=== PATIENT | male | born 1950 | race Caucasian/White ===

== ENCOUNTER 2017-05-03 05:58 | Inpatient (IN) | payer MEDICARE ==
[2017-05-03] VITALS (11 sets, daily range): BP systolic 94–122; BP diastolic 52–71; PULSE 77–87; RESP 14–20; O2SAT 93–99
[~2017-05-03] VITALS: Ht 177.8 cm; Wt 100.0 kg
[~2017-05-03 05:58] MED LIST: ASCO500C6 PO; CHOL10008 PO; CLIN-78 PO; DIAZ5TAB PO; DUTA0.5C2 PO; FLUT9.9S NS; GLBR5T PO; LEVO50CA2 PO; LOVA20TA PO; LTRS15C EXT; Lactated Ringer's 1,000 ML IV SCH; MELO-253 PO; METF-496 PO; MULT-1018 PO; MUPI15CR TOPICAL; NAPR220C16 PO; RIFA300C4 PO; TAMS0.4C98 PO
[2017-05-03] MEDS ORDERED: Acetaminophen IV 1,000 mg IV ONE (06:00)
[2017-05-03] MEDS ORDERED: Hip/Knee Infiltration Cocktail INFILTRATE ONE ×7 (06:00)
[2017-05-03] MEDS ORDERED: Bupivacaine Liposome 1.3% 20 mL Inj INFILTRATE ONE (06:00)
[2017-05-03] MEDS ORDERED: Gentamicin 40 mg/mL 2 mL Inj INJ ONE (06:00)
[2017-05-03] MEDS ORDERED: CeFAZolin 2 Gm/50 mL D5W IV Premix IV ONE (06:00)
[2017-05-03] MEDS ORDERED: Lactated Ringer's 1,000 ML IV ONE ×2 (06:10→09:44)
[2017-05-03] MEDS ORDERED: 0.9% Sodium Chloride 100 ML ONE (07:04)
[2017-05-03] MEDS ORDERED: Tranexamic Acid 100 mg/mL 10 mL Inj ONE (07:04)
[2017-05-03] MEDS ORDERED: Lactated Ringer's 1,000 ML IV SCH (07:07)
[2017-05-03] MEDS ORDERED: Lactated Ringer's 500 ML IV PRN (07:07)
--- NOTE | 2017-05-03 07:07 | PCM.HPANE ---
Patient Data Date of Service: May 03, 2017 Surgeon Admitting Provider: Attending Provider:Conner Gonzalez MD Primary Care Physician:Dallas Davalos DO Other Provider:Valeriy Grove Anesthesia Reason for Visit Right Shoulder Arthritis Ht/WT & BMI Height (Feet): 5 Height (Inches): 10.00 Weight (Kilograms): 100 Body Mass Index 31.00 Allergies Coded Allergies: No Known Allergies (Unverified , 04/25/17) Past Anesthesia History Anesthesia History: Denies:: Abnormal Airway, Difficult Intubation Diabetes History Hx Diabetes?: Yes (type II) Type of Diabetes: Type II Glycemic Control: Oral Medication Current Bedside Blood Glucose: 110 MRSA MRSA: Yes (2005) Medications Hypertension Medication: Yes Home Meds Incl Beta Diana: No Reported Medications Cholecalciferol (Vitamin D3) (Vitamin D3)1,000 Unit Tab.chew1,000 Unit PO DAILY 04/25/17 Ascorbic Acid (Vitamin C)500 Mg Capsule.er500 Mg PO DAILY #2 TABLET 04/25/17 Diazepam (Valium)5 Mg Tablet5 Mg PO DAILY A 30 Days Ref 0 04/25/17 Levothyroxine (Tirosint)50 Mcg Hdmuyjq69 Mcg PO DAILY 04/25/17 Tamsulosin (Flomax)0.4 Mg Capsule0.4 Mg PO DAILY Ref 0 04/25/17 Rifampin 300 Mg [id number] Mg PO DAILY 04/25/17 Naproxen Sodium 220 Mg Lhoqvuy186 Mg PO BID PRN For Pain #2 CAPSULE Ref 0 04/25/17 Multivitamin (Multi Vitamin Daily)1 Each Tablet1 Each PO DAILY 30 Days Ref 0 04/25/17 Metformin ER 1,000 Mg Tablet1,000 Mg PO BID #1 TABLET Ref 0 04/25/17 Meloxicam 15 Mg Xjihcr91 Mg PO DAILY 30 Days Ref 0 04/25/17 Lovastatin 20 Mg Yiedvm96 Mg PO HS #30 TABLET Ref 0 04/25/17 Betamethasone/Clotrimazole (Lotrisone Cream)60 Applic/15 Gm Cream60 Applic EXT BID #1 TUBE 04/25/17 Glyburide 5 Mg Tab5 Mg PO DAILYWM 30 Days Ref 0 04/25/17 Fluticasone Propionate (Flonase Allergy Relief)50 Mcg/Actuation [place].susp9.9 Ml NS DAILY 04/25/17 Clindamycin 300 Mg Fdzainl352 Mg PO BID Ref 0 04/25/17 Mupirocin Cream (Bactroban Cream)15 Gm Cream..g.1 Applic TOPICAL TID #1 TUBE Ref 0 04/25/17 Dutasteride (Avodart)0.5 Mg Capsule0.5 Mg PO DAILY #30 CAPSULE Ref 0 04/25/17 History History of ENT Problems?: Yes HEENT History: Positive for:: Cataracts Sinus Problem (allergy related) Denies:: Abnormal Airway Difficult Intubation Dysphagia Glaucoma TMJ Denture Type: None Teeth Condition: Within Normal Limits Hx of Heart Problems?: Yes Cardiovascular History: Positive for:: Hypertension Hx of Respiratory Problem?: No Respiratory History: Denies:: Use of C-PAP Machine Hx Neurologic Problems?: No Neurological History: Positive for:: Dizziness (after bending over, history of inner ear problem) Denies:: Alzheimer's Disease CVA Dementia Headaches Multiple Sclerosis Parkinson's Disease Seizures TIA Other Neurological Pertinent: slight aixa with head Hx of GI Problems?: Yes Other GI Pertinent History: unbilical hernia repair 5 years ago Hx of Problems?: No Male Hx: Positive for:: Prostate Problems (prostate CA seeded) Denies:: Scrotal Mass Testicular Surgery Skin History: Positive for:: History Skin Disorders? (Dermatitis ears extremities) Denies:: Pressure Ulcers Hx Musculoskeletal Problems?: Yes Musculoskeletal History: Positive for:: Back Injury (lower back left hip discomfort) Degenerative Joint Joint Replacement (lt shoulder, left knee) Osteoarthritis Denies:: Musculoskeletal Trauma Hx of Psycho/Social Problems?: No Hx Surgeries?: Yes (umbilical hernia rpr, lt shoulder replacement) Other History: Positive for:: Cancer (proatate) Hospitalization ( knee replacement) Thyroid Disease (hypothyroidism) History Blood Transfusions: Positive for:: Accept Blood Products? Denies:: Blood Transfusions Hx Diabetes: Yes (type II)Bedside Blood Glucose: 110 Hx Alcohol Use: Yes (occassionally )Alcoholic Drinks Per Day: 4 mixed drinks a weekHx Substance Use: No Smoking Status: Current Every Day Smoker Have You Smoked inLast 12 mo: YesApprox How Many Cigarettes/day: 20 Stop/Bang Treated for Sleep Apnea?: No Do You Have a CPAP Machine?: No S-Snoring: Do You Snore Loudly: No T-Tired: feel tired, fatigued: Yes O-Obsered: Observed not breath: No P-Blood Pressure: treated: No B- Body Mass Index > 35 kg/m2: No A- Age over 50: Yes N- Neck Large Circumference: No G- Gender Male: Yes RAÚL Total Score: 3 RAÚL Risk Assessment: High Risk, =/>3 Yes RAÚL Category 2: Yes Risk Assessment Category Category 1A: Patient has history of documented sleep apnea, and HAS NOT received any narcotic, sedative or anesthesia administration during this stay. Category 1B: Patient has history of documented sleep apnea, and HAS received any narcotic , sedative or anesthesia administration during this stay Category 2: Patient has SUSPECTED Obstructive Sleep Apnea, and HAS received any narcotic , sedative or anesthesia administration during this stay. Category 3: Patient has SUSPECTED Obstructive Sleep Apnea and HAS NOT received narcotic, sedative or anesthesia administration during this stay. Category 4: Outpatient in Procedural Areas with known sleep apnea or who screen positive for High Risk via the STOP/BANG questionnaire. Exam Exam Vital Signs Vital Signs Date Time Temp Pulse Resp B/P Pulse Ox O2 Delivery O2 Flow Rate FiO2 05/03/17 06:49 36.3 83 14 122/71 95 Room Air General Appearance: Alert, Oriented X3, Cooperative HEENT/AIRWAY: MP 2, Neck Movement (Full), Mouth Opening (Wide) Lungs: Clear to Auscultation, Normal Air Movement Heart: Regular Rate/Rhythm, Normal S1, Normal S2 Meds/Labs/Diagnostics Admission Meds Current Medications Lactated Ringer's (Lr) 1,000 ml @ ud STK-MED ONCE IV Last administered on t 06:10; Start 05/03/17 at 06:10; Stop 05/03/17 at 06:11; Status DC Bedside Blood Glucose: 110 Plan Impression Patient chart reviewed, patient interviewed and anesthestic plan with risks, benefits, and alternatives discussed, and informed consent obtained. ASA Physical Status: ASA2 Mod Systemic Disease Anesthetic Plan: GA, Regional Block Bene/Risks/Altern/Consents: Yes HP Complete Prior to Induction: Yes Ye Silveira MD May 03, 2017 07:07
[2017-05-03] MEDS ORDERED: MetoCLOpramide 5 mg/mL 2 mL Inj IVPUSH PRN ×2 (07:10→09:55)
[2017-05-03] MEDS ORDERED: Ondansetron 2 mg/mL 2 mL Inj IVPUSH PRN (07:10)
[2017-05-03] MEDS ORDERED: Atropine 0.4 mg/mL Inj IVPUSH PRN (07:10)
[2017-05-03] MEDS ORDERED: Dexamethasone 4 mg/mL Inj IVPUSH PRN (07:10)
[2017-05-03] MEDS ORDERED: Labetalol 5 mg/mL 20 mL Inj IV PRN (07:10)
[2017-05-03] MEDS ORDERED: fentaNYL-PF 50 mCg/mL 2 mL Inj IVPUSH PRN (07:10)
[2017-05-03] MEDS ORDERED: HYDROmorphone 1 mg/mL Inj IVPUSH PRN (07:10)
[2017-05-03] MEDS ORDERED: Phenylephrine 10,000 mCg/mL Inj IVPUSH PRN (07:10)
[2017-05-03] MEDS ORDERED: hydrALAZINE 20 mg/mL Inj IVPUSH PRN (07:10)
[2017-05-03] MEDS ORDERED: EPHEDrine Sulfate 50 mg/mL Inj IVPUSH PRN (07:10)
[2017-05-03] MEDS ORDERED: Bacitracin 50,000 unit Inj IRRIGATION ONE (08:26)
[2017-05-03] MEDS: [UNRECOGNIZED DRUG - OTHER] INFILTRATE ONE ×14 (08:35→09:00)
[2017-05-03] MEDS: MORPHINE INFILTRATE ONE ×14 (08:35→09:00)
[2017-05-03] MEDS: BUPIVACAINE INFILTRATE ONE ×14 (08:35→09:00)
[2017-05-03] MEDS ORDERED: diphenhydrAMINE 25 mg Capsule PO PRN ×2 (09:55→11:45)
[2017-05-03] MEDS ORDERED: Magnesium Hydroxide 10 mL Oral Concentration PO PRN ×2 (09:55→11:45)
[2017-05-03] MEDS ORDERED: Polyethylene Glycol (PEG) 17 Gm Powder PO PRN (09:55)
[2017-05-03] MEDS ORDERED: Sodium Biphos-Phos 133 mL Enema RECTAL PRN ×2 (09:55→11:45)
[2017-05-03] MEDS ORDERED: Ketorolac 15 mg/mL Inj IVPUSH PRN (09:55)
--- NOTE | 2017-05-03 10:01 | PCM.ORTHOP ---
Orthopedic Operative Report Date of Service: May 03, 2017 Pre Operative Diagnosis Right shoulder degenerative joint disease Post Operative Diagnosis Right shoulder degenerative joint disease Procedure Right total shoulder arthroplasty, open biceps tenodesis Surgeon Surgeon: Conner Gonzalez MD Assistants: Mookie Moraes Indication for Procedure Right shoulder degenerative joint disease, severe Findings Severe degenerative joint disease, biceps tendinitis Details of Procedure Implant: Arthrex univers vaultlock size large glenoid, stem size 11mm with 50/ 19 head The risks, benefits, indications and alternatives, including non-operative management of open reduction and plating were discussed with the patient in detail. The patient understood this operation would be strictly for pain control and would not necessarily improve the function of the arm. The patient voiced understanding of the risks and agreed to proceed. All questions were answered to the patients satisfaction. Verbal and written consent were obtained. Description of Operation: The patient was brought to the operating room. Time out was performed in the presence of the Orthopedic and the fundraiser. Preoperative antibiotics were given. Interscalene block performed by anesthesia. General anesthesia was administered. The patient was placed in a beachchair position. The right arm was prepped and draped in the usual sterile fashion. A standard deltopectoral approach was made. Blunt dissection was carried through the interval to expose the subscapularis muscle after retracting the conjoined tendon medially. Care was taken to not damage nearby neurovascular structures. The anterior humeral circumflex vessels were ligated. Helton scissors were used to cut through the rotator interval to expose the anatomic neck of the humerus. The subscapularis tendon was tagged using # 1 Ethibond sutures. The subscapularis tendon was cut longitudinally using a Bovie. The shoulder was slowly externally rotated while peeling the inferior capsule off of the humeral neck until the shoulder was dislocated and the humeral head was exposed. There were several small loose bodies in the posterior recess as well as in the subscapularis recess which were removed. There was extensive erosion and flattening of the humeral head. Extensive osteophytes were present over the periphery of the humeral head. Moderate dysplasia of the head was seen as evidenced by the increased inclination of the head. The subscapularis was tucked medially. The osteophytes around the humeral head were removed using an osteotome and mallet to expose the anatomic neck. The supraspinatus and infraspinatus were found to be intact and attached to the greater tuberosity. A neck cutting guide was placed and then the cut was made with 30 degrees of retroversion using a saw. The neck was sequentially broached to the proper fit. The head trial were placed until the proper fit was obtained. A head protector sleeve was placed on the cut surface. Using a Triatt retractor the glenoid was exposed. Circumferential exposure of the glenoid from the 1 o'clock position to the 7 o'clock position was done using a Bovie taking care to stay close to the bone. The glenoid was sized and then reamed appropriately. Peg holes were drilled along with the center hole. A trial implant was placed which fit well. After removing the trial, the wound was irrigated. The peg holes were filled with manually pressurized cement and the above mentioned glenoid component was impacted until an excellent fit was obtained. Attention was then taken to the humeral head. The humeral head trial was placed the the shoulder stability was verified after reduction and found to be appropriate. The trial head and stem were removed and proper inclination was noted. Multiple #2 Fiber-wire sutures were placed in the lateral subscapularis stump on the lesser tuberosity and then through the rim of the humeral neck. The implant was assembled on the back table. The wound was irrigated. The humeral implant was impacted into the humerus until the proper fit was obtained. The shoulder was reduced and excellent stability was tested and verified. The subscapularis was then repaired using the aforementioned Fiber- wire sutures and also an 0-Vicryl suture. A proximal biceps tenotomy was performed after a distal tenodesis was performed to the pec major.. The rotator interval was closed. Hemostasis was achieved. The wound was irrigated with copious saline. Local cocktail was used which included bupivicaine. Gentamicin was injected into the joint. IV transexamic acid was used preop and intraop. The wound was then closed in layers, dressed appropriately and the shoulder was placed in an immobilizer. The patient was extubated without difficulty and transferred to the PACU in stable condition. EYELET CUTTER SURGEON: During the operation, the services of physician surgical services manager were medically indicated and necessary to provide exposure of the operative site for the surgical procedure and to maintain the limb in a proper position to carry out the operation safely and efficiently. Without the qualified district administrative assistant being present, it would have extended the operative procedure and made the procedure technically more difficult to perform. Nonweightbearing to affected upper extremity. Please leave sling on at all times. You may remove sling 3 times a day to move the elbow wrist and fingers. Do not move your shoulder. PROM only, IR to body, ER to 0 degrees, FF to 90 degrees, ABD to 0 degrees. Keep your arm at neutral, NO external rotation of the arm, no resisted IR of the arm. Please keep the affected extremity elevated when possible. You may use ice and/or heat as needed for comfort. Follow-up in 2 weeks with me with 2-view xrays and for suture removal and Steri -Strip application. Follow-up with me at 6 weeks. You will have pain medications , medication for constipation and aspirin 81 qdaily X 2 weeks if you are not already on blood thinners. Grafts, Implants: Implants-See Implant Record Complications There were no periprocedural complications identified. Condition Stable Anesthetic Administered: GA Catheters: None Output, Estimated Blood Loss: 50 Blood Admin during surgery: No Surgical Cast or Splint: Shoulder Immobilizer, Other Surgical Specimen Removed: No Specimen sent to Pathology: No copies to: Conner Gonzalez MD, Christopher L MD May 03, 2017 10:01
--- NOTE | 2017-05-03 10:46 | DRSVH ---
PROCEDURE: X-RAY RIGHT SHOULDER, MINIMUM TWO VIEWS ([id number]) INDICATIONS: 66-year-old male status post right shoulder arthroplasty. TECHNIQUE: 2 postoperative views of the shoulder were acquired. COMPARISON: LOCATED WITHIN [facility], , XR SHOULDER MIN 2VW RT, 02/03/2017, 14:03. FINDINGS: Bones: Right shoulder arthroplasty hardware appears intact and in expected positions. No periprosthe tic fractures or dislocations. No suspicious bony lesions. Visualized ribs appear intact. Soft tissues: No suspicious soft tissue calcifications. IMPRESSION: Status post right shoulder arthroplasty, with hardware components in expected positions. Dictated by: Ruslan Couch M.D. on 05/03/2017 at 10:43 Approved by: Ruslan Couch M.D. on 05/03/2017 at 10:44
--- NOTE | 2017-05-03 11:19 | PCM.ANEP1 ---
Post Anesthesia PACU Phase 1 Assessment Date of Service: May 03, 2017 Vital Signs Vital Signs Date Time Temp Pulse Resp B/P Pulse Ox O2 Delivery O2 Flow Rate FiO2 05/03/17 10:35 83 17 96/62 96 Nasal Cannula 3 05/03/17 10:20 84 15 99/63 93 Room Air 05/03/17 10:15 87 17 103/64 99 Simple Mask 10 05/03/17 10:10 84 16 99/52 98 Simple Mask 10 05/03/17 10:05 36.4 85 14 102/59 98 Simple Mask 10 05/03/17 06:49 36.3 83 14 122/71 95 Room Air Anesthetic Administered: GA, Regional Block Level of Alertness: Awake, talking MAYNARD's with Equal Strength: No (block working effectively on right arm) Pain: No Nausea or Vomiting: No CV Function & Hydration Stable: Yes Airway Device: Oxygen Delivery: Simple Mask Lungs: Normal Air Movement PACU Phase 2 Assessment Complications: No Follow up Care: N/A Patient Instructions Provided: N/A Ye Silveira MD May 03, 2017 11:19
[2017-05-03] MEDS ORDERED: Ondansetron 2 mg/mL 2 mL Inj ONE (11:25)
[2017-05-03] MEDS ORDERED: fentaNYL-PF 50 mCg/mL 2 mL Inj ONE (11:25)
[2017-05-03] MEDS ORDERED: Neostigmine 1 mg/mL 10 mL Inj ONE (11:25)
[2017-05-03] MEDS ORDERED: Rocuronium 10 mg/mL 5 mL Inj ONE (11:25)
[2017-05-03] MEDS ORDERED: Phenylephrine/NS 100 mCg/mL 10 mL Syringe IVPUSH ONE (11:25)
[2017-05-03] MEDS ORDERED: Propofol 10,000 mCg/mL 20 mL Inj ONE (11:25)
[2017-05-03] MEDS ORDERED: Glycopyrrolate 0.2 MG/ML 1mL Inj ONE (11:25)
[2017-05-03] MEDS ORDERED: hydrOXYzine Inj 50 MG/1 mL SDV IM PRN (11:45)
[2017-05-03] MEDS ORDERED: Alum-Mag Hydrox-Simeth 30 mL Suspension PO PRN (11:45)
[2017-05-03] MEDS: 0.9% Sodium Chloride 1,000 ML IV SCH ×2 (12:19→22:25)
--- NOTE | 2017-05-03 14:00 | NUR ---
Post op Arrival to 1020 at 1130, pt denied pain at this time and reports no nausea. CMS intact; mild numbness being felt in R 5th digit. Luis is alert and oriented. Vital signs stable with baseline BP in low 100s/60s. NS infusing at 80mls/hr.
--- NOTE | 2017-05-03 15:49 | NUR ---
Evaluation completed. Please go to "Notes" then click on "Assessments and Notes" (bottom left corner of screen). Then select appropriate discipline tab on top of screen.
[2017-05-03 18:32] LABS: APPEARANCE,URINE CLEAR (CLEAR,HAZY); COLOR,URINE YELLOW (YELLOW); OCCULT BLOOD,URINE NEGATIVE (NEGATIVE); UROBILINOGEN,URINE NORMAL (NORMAL)
[2017-05-03] MEDS: hydrOXYzine Pamoate 25 mg Capsule PO PRN ×2 (18:33→23:39)
[2017-05-03] MEDS: HYDROcodone-APAP 5-325 mg Tablet PO PRN ×2 (18:34→23:39)
[2017-05-03] MEDS: CeFAZolin Inj 2 GM in IV Premix 1 EACH IV SCH (19:22)
[2017-05-03] MEDS: Senna-Docusate 8.6-50 mg Tablet PO SCH (21:09)
[2017-05-04 00:55] VITALS: BP 119/69; PULSE 88; RESP 20; O2SAT 93
[2017-05-04] MEDS: CeFAZolin Inj 2 GM in IV Premix 1 EACH IV SCH (02:24)
--- NOTE | 2017-05-04 02:34 | NUR ---
Pt with baseline BPH. States he feels that he is struggling more than normal to urinate. Able to void 100-150cc with every void, bladder scan done multiple times and Pt has 50-80cc left. Frustrated with IV fluids, converted to SL aas Pt has been tolerating PO intake and good fluid intake. Pt continued to agree to keep trying. Care continues
[2017-05-04 04:55] VITALS: BP 122/72; PULSE 84; RESP 17; O2SAT 94
[2017-05-04 06:23] LABS: BASOPHILS % (AUTO) 0.2 % (0-3); EOSINOPHILS % (AUTO) 1.7 % (0-5); Mean Corpuscular Hemoglobin 29.8 pg (27.0-35.0); Mean Corpuscular Volume 91.4 fL (81-100); NEUTROPHILS % (AUTO) 69.2 % (40-74); Platelet Count 221 bil/L (150-400)
[2017-05-04] MEDS: HYDROcodone-APAP 5-325 mg Tablet PO PRN (08:07)
[2017-05-04] MEDS: hydrOXYzine Pamoate 25 mg Capsule PO PRN (08:07)
[2017-05-04] MEDS: Senna-Docusate 8.6-50 mg Tablet PO SCH (08:09)
[2017-05-04 09:04] VITALS: BP 117/73; PULSE 83; RESP 18; O2SAT 93
--- NOTE | 2017-05-04 10:47 | PCM.PNORTH ---
Subjective Date of Service: May 04, 2017 Visit Information: Reason for Visit Right Shoulder Arthritis Surgery/Surgery Date RIGHT TOTAL SHOULDER 05/03/17 Post-Op Day # Date of Admission: May 03, 2017 at 11:24 Hospital Day # Subjective Status post a day #1 right total shoulder arthroplasty. Patient states he is doing pretty well, does not like the sling but his pain is well controlled and he would like to go home today. Postop General: No Complaints, No Shortness of Breath, No Chest Pain Objective Exam Objective Patient is alert and oriented 3. Answering questions appropriately. Patient is sitting up in the bed and not in acute distress today. Dressing is clean dry and intact, wearing the sling appropriately. Sensation and pulses intact, patient able to wiggle fingers. Vital Signs and I/O Vital Sign - Last Date Time Temp Pulse Resp B/P Pulse Ox O2 Delivery O2 Flow Rate FiO2 05/04/17 09:04 36.8 83 18 117/73 93 Room Air 05/03/17 10:35 3 Intake and Output 05/03/17 05/03/17 05/04/17 Cumulative From/Thru 14:59 22:59 06:59 04/25/17 10:09 - 05/04/17 03:34 Intake Total 1320 ml 1260 ml 846 ml 3426 ml Output Total 100 ml 700 ml 800 ml Balance 1220 ml 560 ml 846 ml 2626 ml Intake Oral 1260 ml 1260 ml IV Total 1320 ml 846 ml 2166 ml Output Urine Total 700 ml 700 ml Estimated Blood Loss 100 ml 100 ml # Bowel Movements 0 0 Lab & Micro Results Laboratory Tests Test 05/03/17 18:05 05/04/17 05:30 Urine Color Yellow (YELLOW) Urine Appearance Clear (CLEAR,HAZY) Urine pH 6.0 (5.0-8.0) Urine Specific [place] 1.010 (1.003-1.035) Urine Protein Negativemg/dL (NEG,TRACE) Urine Glucose (UA) Negativemg/dL (NEGATIVE) Urine Ketones Negativemg/dL (NEGATIVE) Urine Occult Blood Negative (NEGATIVE) Urine Nitrite Negative (NEGATIVE) Urine Bilirubin Negative (NEGATIVE) Urine Urobilinogen Normalmg/dL (NORMAL) Urine Leukocyte Esterase Negative (NEGATIVE) Urine RBC 0-2/hpf (0-2) Urine WBC 0-5/hpf (0-5) Urine Epithelial Cells None/hpf (NONE-MOD) Urine Crystals None seen (NONE SEEN) Urine Bacteria Few/hpf (NONE-FEW) Urine Hyaline Casts None/lpf (NONE) Urine Granular Casts None seen (NONE SEEN) Urine Waxy Casts None seen (NONE SEEN) Urine Red Blood Cell Casts None seen (NONE SEEN) Urine White Blood Cell Casts None seen (NONE SEEN) Urine Mucus None seen (None Seen) Urine Trichomonas None seen (NONE SEEN) Urine Yeast None (NONE SEEN) Urinalysis Comment None Urine Culture Reflexed Not indicated White Blood Count 14.7th/mm3 (3.8-10.1) Red Blood Count 4.06mil/mm3 (4.40-5.80) Hemoglobin 12.1g/dL (13.8-17.2) Hematocrit 37.1% (41.0-50.0) Mean Corpuscular Volume 91.4fL (81-100) Mean Corpuscular Hemoglobin 29.8pg (27.0-35.0) Mean Corpuscular Hemoglobin Concent 32.6% (32.0-37.0) Red Cell Distribution Width 15.5% (12.3-15.4) Platelet Count 221bil/L (150-400) Neutrophils (%) (Auto) 69.2% (40-74) Lymphocytes (%) (Auto) 18.7% (14-46) Monocytes (%) (Auto) 10.0% (4-12) Eosinophils (%) (Auto) 1.7% (0-5) Basophils (%) (Auto) 0.2% (0-3) Result Diagram: 05/04/17 0530 Catheters: None Assessment & Plan Impression Status post day #1 right total shoulder arthroplasty. Patient doing well. Problems: Plan Keep the dressing clean dry and intact for at least 3 days. On day number 4 you may remove the dressing if desired and shower. Please try to replace with another dressing and keep the wound dry as possible anterior postoperative appointment. You should not lift, pull, push with this arm. Remain in the sling at all times except for 3 times a day to allow the elbow to extend fully. No rotation of the arm, no lifting of the arm. We will have you take aspirin 81 mg tablets once a day for 2 weeks for DVT prophylaxis. I gave you a prescription of Percocet to use as needed for pain. We will have you follow-up at 2 weeks for wound assessment and x-rays with Dr Gonzalez, then follow-up again at [address] Gonzalez . . Patient will be discharged to home today. Mookie Moraes PA-C May 04, 2017 10:47
--- NOTE | 2017-05-04 10:48 | PCM.DIORTH ---
Ortho Discharge Instruction Date of Service: May 04, 2017 Dates of Hospitalization Date of Hospital Admission May 03, 2017 at 11:24 Providers Admitting Physician: Conner Gonzalez MD Primary Care Physician: Dallas Davalos DO Attending Physician: Conner Gonzalez MD Diet Discharge Diet: No restrictions Activity Right Upper Extremity: Non-weight bearing Additional Instructions Discharge Instructions Keep the dressing clean dry and intact for at least 3 days. On day number 4 you may remove the dressing if desired and shower. Please try to replace with another dressing and keep the wound dry as possible anterior postoperative appointment. You should not lift, pull, push with this arm. Remain in the sling at all times except for 3 times a day to allow the elbow to extend fully. No rotation of the arm, no lifting of the arm. We will have you take aspirin 81 mg tablets once a day for 2 weeks for DVT prophylaxis. I gave you a prescription of Percocet to use as needed for pain. We will have you follow-up at 2 weeks for wound assessment and x-rays with Dr Gonzalez, then follow-up again at [address] Gonzalez . Mookie Moraes PA-C May 04, 2017 10:48
--- NOTE | 2017-05-04 10:51 | PCM.DC.ORT ---
Discharge Summary Date of Service: May 04, 2017 Date of Hospital Admission: May 03, 2017 at 11:24 Date of Surgery: May 03, 2017 Date of Discharge: May 04, 2017 Reason for Hospitalization: Right shoulder osteoarthritis Procedures Performed: Right total shoulder arthroplasty Hospital Course: Patient presented to [facility] surgical suite for the procedure of right total shoulder arthroplasty by Dr. Conner Gonzalez on 05/03/2017. Patient was prepped for surgery and the procedure was performed successfully, patient was discharged to PACU under stable condition, tolerated the procedure well. Once stabilized in PACU and pain well controlled, patient was admitted to the hospital floor for observation, pain control, and progression with physical therapy. The first day the patient was able to resume a regular diet, void on their own, not having any problems with nausea or vomiting. The patient did not have any adverse falls, reactions, or events were all in the hospital. The patient began working with physical therapy on day one then progressed quite well with reasonable pain control. On day 1 the patient was able to ambulate safely on their own, and pain was controlled sufficiently to be discharged to home. Patient will be given 81 mg of aspirin to take 1 by mouth daily 2 weeks for DVT prophylaxis. The patient was discharged to home under stable condition with plan to follow- up with patient at 2 weeks for a postoperative appointment and 6 week postoperative appointment both with Dr Conner Gonzalez. Diagnosis at Time of Discharge Status post right total shoulder arthroplasty Problems: Discharge Instructions: Keep the dressing clean dry and intact for at least 3 days. On day number 4 you may remove the dressing if desired and shower. Please try to replace with another dressing and keep the wound dry as possible anterior postoperative appointment. You should not lift, pull, push with this arm. Remain in the sling at all times except for 3 times a day to allow the elbow to extend fully. No rotation of the arm, no lifting of the arm. We will have you take aspirin 81 mg tablets once a day for 2 weeks for DVT prophylaxis. I gave you a prescription of Percocet to use as needed for pain. We will have you follow-up at 2 weeks for wound assessment and x-rays with Dr Gonzalez, then follow-up again at [address] Gonzalez . Ascorbic Acid (Vitamin C) 500 Mg Capsule.er 500 MG PO DAILY Betamethasone/Clotrimazole (Lotrisone Cream) 60 Applic/15 Gm Cream 60 APPLIC EXT BID Cholecalciferol (Vitamin D3) (Vitamin D3) 1,000 Unit Tab.chew 1,000 UNIT PO DAILY Clindamycin (Clindamycin) 300 Mg Capsule 300 MG PO BID Diazepam (Valium) 5 Mg Tablet 5 MG PO DAILY Dutasteride (Avodart) 0.5 Mg Capsule 0.5 MG PO DAILY Fluticasone Propionate (Flonase Allergy Relief) 50 Mcg/Actuation [place].susp 9.9 ML NS DAILY Glyburide (Glyburide) 5 Mg Tab 5 MG PO DAILYWM Levothyroxine (Tirosint) 50 Mcg Capsule 50 MCG PO DAILY Lovastatin (Lovastatin) 20 Mg Tablet 20 MG PO HS Meloxicam (Meloxicam) 15 Mg Tablet 15 MG PO DAILY Metformin ER (Metformin ER) 1,000 Mg Tablet 1,000 MG PO BID Multivitamin (Multi Vitamin Daily) 1 Each Tablet 1 EACH PO DAILY Mupirocin Cream (Bactroban Cream) 15 Gm Cream..g. 1 APPLIC TOPICAL TID Naproxen Sodium (Naproxen Sodium) 220 Mg Capsule 220 MG PO BID PRN PRN For Pain Rifampin (Rifampin) 300 Mg Capsule 300 MG PO DAILY Tamsulosin (Flomax) 0.4 Mg Capsule 0.4 MG PO DAILY Mookie Moraes PA-C May 04, 2017 10:50
[2017-05-04] MEDS: 0.9% Sodium Chloride 1,000 ML IV SCH (10:55)
--- NOTE | 2017-05-04 11:15 | NUR ---
Social Work- Initial Assessment/Discharge/Multidisciplinary Rounds Data: EMR reviewed. Pt is a 66 year old male admitted for elective right shoulder replacement per H&P. Pt's insurance is [employer] [facility]. Pt's PCP is Dallas aDvalos MD. Pt's readmit risk score is not listed at this time. Pt's NOK is Luis Carlos Scanlon, son, . AYSHA discussed pt with Ortho ALYX Moraes. No SW orders received, no concerns related to pt's capacity for self-care identified in this conversation. SW met with pt and niece Diana Scanlon at bedside to complete discharge assessment. Pt alert and oriented x3. Pt's capacity for self-care assessed. Pt resides in [place] alone but pt's niece will be available for the next month to help to recover. Pt has a cane and walker at home but uses no DME at baseline. Pt drives. Pt has no history of HH services but has history of SNF in [facility]. Pt has no LTC or VA benefits. Pt agreeable to DPOA paperwork provided at bedside. Pt requests that he have HH services at home because he does not want to come to outpt. Educated pt on HH role and requirement of being homebound. Pt states that he is not homebound. Pt does not want to drive once weekly to outpt PT for rehab. Discussed that pt's surgery was elective and pt's niece could likely drive him each week. Niece agreeable to this. SW provided d/c planning checklist and DPOA paperwork, wrote phone number and plan on whiteboard. No additional d/c planning needs. Assessment: Pt who is independent with ADLs and self-care at baseline and who will have assistance from his niece for the next month Plan: Pt to d/c home with his niece to transport via POV, outpt PT services as appropriate according to Ortho. No additional d/c planning needs identified. SIXTO [place] Addendum: 05/04/17 at 1131 by PRIMO LING SS Amended: Links added.
--- NOTE | 2017-05-04 12:14 | NUR ---
Discharge To home via private vehicle with niece at 12:13. Steady transfer to wheelchair.IV discontinued intact. Pt and niece express understanding of all discharge instructions and care notes, including meds and followup. Rx given. All belongings sent with pt.
== END 2017-05-04 12:12 | disposition home or self-care (01) | DRG 483 ==
LOC: SAS 05:58 → OSC 11:24
PROVIDERS: ADMIT Orthopaedic Surgery; ATTEND Orthopaedic Surgery
PROC: 0LS30ZZ Reposition Right Upper Arm Tendon, Open Approach (ICD-10-PCS; 2017-05-03)
PROC: 0RRJ0JZ Replacement of Right Shoulder Joint with Synthetic Substitute, Open Approach (ICD-10-PCS; principal; 2017-05-03 07:30)
DX: M19.011 Primary osteoarthritis, right shoulder (principal); M75.21 Bicipital tendinitis, right shoulder; I10 Essential (primary) hypertension; F17.200 Nicotine dependence, unspecified, uncomplicated